=== PATIENT | female | born 1950 | race Caucasian/White ===

== ENCOUNTER → 2024-01-07 11:41 | Outpatient (REF) | payer MEDICARE, OTHER, SELFPAY | LOC: HWWDC 11:41 | PROVIDERS: ATTENDING PHYSICIAN Physician Assistant Medical | DX: Z12.31 Encounter for screening mammogram for malignant neoplasm of breast (principal) | CPT/HCPCS: 77063; 77067 ==

== ENCOUNTER → 2024-04-07 10:19 | Outpatient (REF) | payer MEDICARE, OTHER, SELFPAY | LOC: HWRAD 10:19 | PROVIDERS: ATTENDING PHYSICIAN Internal Medicine Critical Care Medicine; FAMILY PHYSICIAN Physician Assistant Medical | DX: R91.1 Solitary pulmonary nodule (principal) | CPT/HCPCS: 71250 ==

== ENCOUNTER → 2024-04-30 09:09 | Outpatient (REF) | payer MEDICARE, OTHER, SELFPAY | LOC: HWRAD 09:09 | PROVIDERS: ATTENDING PHYSICIAN Physician Assistant Medical | DX: R07.81 Pleurodynia (principal) | CPT/HCPCS: 71101 ==

== ENCOUNTER → 2024-12-15 10:31 | Outpatient (REF) | payer MEDICARE, OTHER, SELFPAY | LOC: PAVMRI 10:31 | PROVIDERS: ATTENDING PHYSICIAN Orthopaedic Surgery; FAMILY PHYSICIAN Physician Assistant Medical | DX: M54.50 Low back pain, unspecified (principal) | CPT/HCPCS: 72148 ==

== ENCOUNTER → 2025-01-22 08:14 | Outpatient (REF) | payer MEDICARE, OTHER, SELFPAY | LOC: HWWDC 08:14 | PROVIDERS: ATTENDING PHYSICIAN Physician Assistant Medical | DX: M85.80 Other specified disorders of bone density and structure, unspecified site (principal); Z12.31 Encounter for screening mammogram for malignant neoplasm of breast; M85.89 Other specified disorders of bone density and structure, multiple sites | CPT/HCPCS: 77063; 77067; 77080 ==

== ENCOUNTER 2025-04-21 12:01 | Inpatient (IN) | payer MEDICARE, OTHER, SELFPAY ==
[2025-04-21] VITALS (8 sets, daily range): BP systolic 112–163; BP diastolic 70–92; PULSE 92–114; BMI 38.8; BMI 37.3
--- NOTE | 2025-04-21 07:33 | ED.GENMED ---
History of Present Illness
General
Chief Complaint: Rectal Bleeding
Source: patient
Exam Limitations: none
Time Seen by Provider: 04/21/25 07:21
History of Present Illness
History of Present Illness:
75-year-old female complaining of multiple episodes of bright red rectal bleeding this morning. Some vague lower abdominal cramps and discomfort. No nausea or vomiting no fever. Similar episode in 2021. Diagnosed with colitis at that time
Past History
Past History
ED Past Medical History: HTN and Hypercholesterolemia
ED Past Surgical History: Tonsilectomy
Social History
Tobacco: Non-smoker
Alcohol: Daily
Drug: None
Personal:
Living: alone
Review of Systems
Review of Systems
All Other Systems: Not applicable
Constitutional: Denies fever
Respiratory: Reports no symptoms
Cardiac: Reports no symptoms
Phy Exam
Physical Exam
Physical Exam:
GENERAL: Alert and oriented in no apparent distress
EYE: Orbits normal.
NECK: Supple, no significant adenopathy.
ENT: Pharynx without erythema
CARDIAC: Regular rate and rhythm without any obvious murmurs.
LUNGS: Clear breath sounds,normal
ABDOMEN: Soft, mild nonlocalizing lower abdominal tenderness. No rebound or guarding no mass or hernia. Rectal exam with no stool in the rectal vault. Very small amount of bright red blood on the fingertip. Test positive
NEUROLOGICAL: Alert and oriented , grossly non-focal
SKIN: Warm and dry, no rash or lesion, no discoloration, skin intact.
MUSCULOSKELETAL: No edema,no deformity.Good color
PSYCH: Normal and appropriate interaction.
Course
Orders/Labs/Results
Orders:
Orders
04/21/25 07:22
IV Insert/Care/Rem.- Treatment PRN
04/21/25 07:25
Type+Screen Urgent
Complete Blood Count/With Diff Urgent
Comprehensive Metabolic Panel Urgent
Lipase Urgent
Comment: ADD ON
04/21/25 07:33
CT Abd/Pel (IV only)-DH only Urgent
Comment:
Reason For Exam: Lower abdominal pain/rectal bleeding
0.9% Sodium Chloride 500 ml [Nss] 500 ml IV BOLUS
04/21/25 09:19
Stool Culture Urgent
ALCON Source: Feces/Stool
Specimen Description:
Date Specimen was Collected: 04/21/25
Time Specimen was Collected: 09:14
04/21/25 11:23
Add On- LAB Urgent
Tests Added?: Lipase
04/21/25 11:24
Admit/Transfer Patient As Directed
Co-Sign Provider:
Level of Care: Inpatient admission
Assign to:: Telemetry
Physician / Group: Hospitalist
Diagnosis: colitis
Reason for Telemetry: Other
Other Reason for Telemetry: GI bleed
Date to Stop Telemetry: 04/23/25
Time to Stop Telemetry: 11:00
Reason for Hospitalization: Colitis
Expected length of stay greater than two midnights?: Yes
ELOS- Estimated Length of Stay in days: 2
I certify the patient meets the requirements for IP care: Yes
PRN Pain Medication Management As Directed
May give lesser potent ordered pain med per pt: Yes
preference::
Protocol:: Medication orders for pain may be administered in a
manner that supports deferring to patient preference
when the pt is:
- Requesting an ordered lesser potent pain medication.
Least to most potent pain medications are defined
as: acetaminophen < NSAID < tramadol < opioids
(morphine, oxycodone, hydromorphone).
- Requesting a lesser dose of the same medication IF
ORDERED.
- Requesting a less intrusive route of administration
if both routes are prescribed by the provider (PO <
IV).
04/21/25 11:30
Code Status As Directed
Resuscitation Status: Full Code
04/23/25 11:00
DC Protocol for Telemetry ONCE
Abnormal Lab Results
04/21/25
07:25
MCHC 31.5 L g/dL
(33.0-37.0)
Abs Immat Gran (auto) 0.1 H 10^3/uL
(0-0.05)
Absolute Neuts (auto) 7.0 H 10^3/uL
(1.4-6.5)
Absolute Monos (auto) 0.9 H 10^3/uL
(0.1-0.6)
Glucose 160 H mg/dl
(70-99)
AST 42 H U/L
(14-36)
ALT 43 H U/L
(0-35)
04/21/25 07:25
04/21/25 07:25
Vital Signs
Initial and Last Documented VS:
Initial Vital Signs
Pulse Ox
98
04/21/25 06:54
Last Documented Vital Signs
Temp Pulse Resp BP Pulse Ox
98.1 F 86 18 148/70 97
04/21/25 06:59 04/21/25 06:59 04/21/25 06:59 04/21/25 11:12 04/21/25 11:45
MDM/Problems Addressed
Differential Diagnosis Includes:
Patient describing multiple episodes of bright red rectal bleeding. Stable. Differential colitis although not describing diarrhea, diverticulitis, internal hemorrhoidal bleeding, polyp or tumor bleeding. Workup in progress.
*Radiology
Radiology exam reviewed: radiology read reviewed (Colitis)
*Pulse Oximetry
SaO2: 96
Oxygen Mode of Delivery: Room air
Patient hypoxic: no (98)
*Critical Care Note
Total Time (30-74mins, 75-104mins- exclusive of procedures): Not Applicable
Data Reviewed
Review of Other/Old Records Reveals: Labs, Records, Radiology Studies and Other (Emergency department visit)
Update Note
Update Note:
Patient with a second episode of rectal bleeding. She has colitis by CT. I am not convinced this is an infectious colitis. Unusual to have a similar episode exactly the same as 3 years ago. No history of autoimmune colitis. She has had a
colonoscopy since that previous episode was negative. Would have to consider ischemic colitis although very nontoxic in appearance and has no significant pain. Will admit for further care
ED Attending Note
-
Portions of this chart may have been created with voice recognition software.� Occasional wrong word or��sound alike� substitutions may have occurred due to the inherent limitations of voice recognition software.
Discharge Plan
Departure
Patient Disposition: Admit
Date of Disposition: 04/21/25
Time of Disposition: 10:52
Presentation/result/management discussed w/ accepting MD/DO: Hospitalist
Discharge Problem:
Rectal bleeding/colitis
Interventions
Interventions:
*Risk Screen - Suicide Last Done: 04/21/25 06:59
*General Assessment Last Done: 04/21/25 06:59
*Neglect/Abuse Screening Last Done: 04/21/25 06:54
*ED- Fall Risk Assessment Last Done: 04/21/25 06:54
YZ-Jdrmli-Lxbssgjywy Assessment Last Done: 04/21/25 06:54
ED- Cardiac Assessment Last Done: 04/21/25 06:54
ED- Pulmonary Assessment Last Done: 04/21/25 06:54
[2025-04-21 07:47] LABS: Hematocrit 42.8 % (37.0-47.0); Hemoglobin 13.5 g/dL (12.0-16.0); Mean Corp Hgb Conc. 31.5 g/dL (33.0-37.0); Mean Corpuscular Volume 93.4 fL (81.0-99.0); Nucleated Red Blood Cells % 0 %; Platelet Count 260 10^3/uL (130-400); Red Cell Dist. Width 13.4 % (11.5-14.5)
[2025-04-21] MEDS: NSS 500 IV (07:50)
[2025-04-21 08:21] LABS: ALT (SGPT) 43 U/L (0-35); AST (SGOT) 42 U/L (14-36); Albumin 4.4 g/dl (3.5-5.0); Alkaline Phosphatase 84 U/L (38-126); Blood Urea Nitrogen 15 mg/dl (7-17); Calcium 8.9 mg/dl (8.4-10.2); Carbon Dioxide 25 mmol/L (22-30); Chloride 105 mmol/L (98-107); Estimated Creatinine Clearance 64 ml/min; Glucose 160 mg/dl (70-99); Potassium 4.0 mmol/L (3.5-5.1); Sodium 140 mmol/L (135-145); Total Protein 7.2 g/dl (6.3-8.2); eGFR > 60.00
--- NOTE | 2025-04-21 11:22 | HPS.HSE ---
Addendum entered and electronically signed by Guille Jasso MD 04/21/25 15:08:
I saw and evaluated the patient. I reviewed the resident�s note and agree with findings and plan as documented in the resident�s note. See changes in my documentation
75-year-old female rectal bleeding since 3 am. She also had some abdominal cramps after that. No dizziness no pain preceding this. No sick contacts or any restaurant meals.
On examination patient awake alert oriented
CVS: S1-S2 normal
Chest: CTA B/L
Abdomen: Soft, NT / Bowel sounds present
Extremities: No edema
# Rectal bleeding
Colitis on CT-likely ischemic colitis versus infectious
Supportive treatment. Hold off on antibiotics
Stool studies if able-patient reports no diarrhea bowel
GI evaluation noted. They are planning for inpatient colonoscopy
Patient had a colonoscopy in June 2022 with polyps and hemorrhoids
IV fluids, sips of clears
# Hypertension-continue amlodipine
# Hyperlipidemia-continue statin
# Hypothyroidism-continue levothyroxine
# Insomnia-on Remeron
# Obesity per BMI criteria
# DVT prophylaxis-SCDs
# Full code
Part of this note was created using voice recognition system. Occasional wrong word or��sound alike� substitutions may have inadvertently occurred due to the inherent limitations of voice recognition software. If noted kindly bring it to my
attention for correction.
Original Note:
Family Physician
-
Family Physician: Laury Csear
Chief Complaint
-
Rectal bleed
History of Present Illness
This is a 75-year-old female with known history of hypertension, hypothyroidism, hypercholesteremia, history of colitis in 2021. Presented with complaints of rectal bleeding that started around 3 in the morning. She also experienced intermittent
lower abdominal cramps. Denies any nausea or vomiting. Denies any fevers or chills. Denies any recent sick contacts, recent travel any changes in the medications. Denies any recent changes in the diet.
In the emergency department patient had 2 additional episodes of bright red blood per rectum.
ED course:
CBC with hemoglobin of 13.5, CMP unremarkable
CT abdomen pelvis with findings of colitis involving the descending and sigmoid colon. Hepatomegaly with hepatic steatosis.
She received 1 bag of 500 mL normal saline.
Medical History
Past Medical History
Past Medical History: Reports HTN, Hypercholesterolemia and Hypothyroidism
Past Surgical History: Reports Tonsilectomy
Social History
Tobacco: Non-smoker
Alcohol: Occasional
Drug: None
Personal: Single
Living: Alone
Family History
Family History: Not pertinent
Allergies / Home Medications
Allergies reflects when Allergies were last updated in [employer].
Home Medications with original date entered in [employer]
Allergy/Medication List:
Allergies
Allergy/AdvReac Type Severity Reaction Status Date / Time
morphine Allergy Vomiting Verified 04/21/25 06:59
Home Medications
amlodipine 5 mg tablet (Norvasc) 5 mg PO DAILY Blood Pressure 02/05/22
acetaminophen 325 mg tablet (Tylenol) 650 mg PO Q6HPRN PRN mild pain 04/21/25
cholecalciferol (vitamin D3) 25 mcg (1,000 unit) tablet (Vitamin D3) 25 mcg PO DAILY Supplement 04/21/25
levothyroxine 125 mcg tablet (Synthroid) 125 mcg PO DAILY Thyroid 04/21/25
mirtazapine 15 mg tablet 15 mg PO HS Sleep 04/21/25
rosuvastatin 20 mg tablet (Crestor) 20 mg PO DAILY High Cholesterol 04/21/25
therapeutic multivitamin 1 tab PO DAILY Supplement 04/21/25
Review of Systems
-
History Source: Patient
Constitutional: Reports No Symptoms
Respiratory: Reports No Symptoms
Cardiac: Reports No Symptoms
Abdomen/GI: Reports Abdominal Pain and Bloody Stools
Neurological: Reports No Symptoms
Physical Exam
Vital Signs
Vital Signs
Temp Pulse Resp BP Pulse Ox
98.1 F 86 18 136/76 96
04/21/25 06:59 04/21/25 06:59 04/21/25 06:59 04/21/25 06:59 04/21/25 07:36
Physical Exam
General: Well Developed, Well Nourished and No Apparent Distress
Respiratory: Clear and Non Labored Respirations
Cardiac: S1/S2 and Regular Rhythm
GI: Soft, Non Distended and Other (Mild tenderness in the lower abdominal area)
Rectal: Other (Patient refused. ER exam showed heme positive with small amount of bright red blood on the fingertip)
Skin: Warm
Neuro: Awake, Alert and Oriented
Psych: Calm
Laboratory Results
-
04/21/25 07:25
04/21/25 07:25
Laboratory Results
Total Bilirubin 0.4 mg/dl (0.2-1.3) 04/21/25 07:25
AST 42 U/L (14-36) H 04/21/25 07:25
ALT 43 U/L (0-35) H 04/21/25 07:25
Alkaline Phosphatase 84 U/L (38-126) 04/21/25 07:25
Data Reviewed
-
CT Scan: Report Reviewed by me, Discussed with Physician and Discussed with Patient
Lab Data: Labs Reviewed by me, Discussed with Physician and Discussed with Patient
Impression/Plan
-
IMPRESSION: 75-year-old female presented with bright red rectal bleeding
CTabd/pel with IV 04/21/2025: Findings of colitis involving the descending and sigmoid colon.
Hepatomegaly with hepatic steatosis.
# Colitis
# Rectal bleeding
- admit to tele
- H&H every 6 hours
- Unlikely infectious; will hold off on antibiotics
- npo with sips of clear; if H&H stays stable can advance to clears later today
- IV PPI
- IVF
- Check C. difficile, stool studies
- GI consult
- Colonoscopy from June 2022 reviewed
#Hypertension
- Continue on home amlodipine 5 mg daily
#Hyperlipidemia
Continue on home rosuvastatin 20 mg daily
#Hypothyroidism
- Continue on home Synthroid 125 mcg
CODE STATUS: Full code
DVT prophylaxis: SCDs
[2025-04-21 12:25] LABS: Lipase 235 U/L (23-300)
--- NOTE | 2025-04-21 14:18 | CON.GI ---
Medical History
Chief Complaint / HPI
Chief Complaint: BRBPR
History of Present Illness:
75yoF PMH HTN, hypothyroid, HLD, colitis 2021 presenting with abdominal cramping and bright red blood per rectum.
Pt reports waking up at around 3am from severe abdominal cramps with significant amount of blood per rectum following. She reports continued rectal blood prompting her presentation to the ED. Denies fever, chills, lightheadedness, nausea, vomiting.
She described similar episode in 2021 when she was diagnosed with colitis. Pt describes intermittent cramps that are present at baseline but are worse with flares when she has bouts of blood. She reports reduced outpt since being in hospital. Denies
eating food out of the ordinary, no recent raw fish or raw food. No recent travel.
She is aware of hx of hemorrhoids that she reports do not bleed as long as she is not constipated. Denies recent constipation. Last BM yesterday.
Pt has hx of bleeding duodenal and gastric ulcers ever since childhood. She reports controlling symptoms well with diet. Her usual symptoms with ulcers is epigastric/sternal pain accompanied by hematemesis in which she denies this episode. Last time
she had ulcers, she had such severe chest pain, they took her to the cardiac [facility]. The endoscopy then revealed 5 bleeding ulcers. She then had a blood clot in her arm. Not on any blood thinners currently.
No FH of colitis.
Past Medical History
Past Medical History: GERD, HTN, Hypercholesterolemia and Hypothyroidism
Social History
Tobacco: Former Smoker (quit 20 years ago)
Alcohol: Daily (1 drink per day)
Drug: None
Allergies / Home Medications
Allergy/AdvReac Type Severity Reaction Status Date / Time
morphine Allergy Vomiting Verified 04/21/25 06:59
�Medication �Instructions �Recorded
amlodipine 5 mg tablet (Norvasc) 5 mg PO DAILY Blood Pressure 02/05/22
acetaminophen 325 mg tablet 650 mg PO Q6HPRN PRN mild pain 04/21/25
(Tylenol)
cholecalciferol (vitamin D3) 25 25 mcg PO DAILY Supplement 04/21/25
mcg (1,000 unit) tablet (Vitamin
D3)
levothyroxine 125 mcg tablet 125 mcg PO DAILY Thyroid 04/21/25
(Synthroid)
mirtazapine 15 mg tablet 15 mg PO HS Sleep 04/21/25
rosuvastatin 20 mg tablet (Crestor) 20 mg PO DAILY High Cholesterol 04/21/25
therapeutic multivitamin 1 tab PO DAILY Supplement 04/21/25
Review of Systems
Vital Signs
Temp Pulse Resp BP Pulse Ox
98.1 F 86 18 155/76 96
04/21/25 06:59 04/21/25 06:59 04/21/25 06:59 04/21/25 13:08 04/21/25 14:00
Physical Exam
Exam
General: Well Developed, Well Nourished and No Apparent Distress
HEENT: Normocephalic, Anicteric and Moist Mucous Membranes
Respiratory: Clear and Non Labored Respirations
Cardiac: S1/S2 and Regular Rhythm
GI: Soft, Non Tender and Non Distended
Skin: Warm and Dry
Neuro: AO x 3 and Nonfocal/Grossly Intact
Results
WBC 10.2 10^3/uL (4.8-10.8) 04/21/25 07:25
Hgb 13.5 g/dL (12.0-16.0) 04/21/25 07:25
Hct 42.8 % (37.0-47.0) 04/21/25 07:25
MCV 93.4 fL (81.0-99.0) 04/21/25 07:25
Plt Count 260 10^3/uL (130-400) 04/21/25 07:25
Absolute Neuts (auto) 7.0 10^3/uL (1.4-6.5) H 04/21/25 07:25
Sodium 140 mmol/L (135-145) 04/21/25 07:25
Potassium 4.0 mmol/L (3.5-5.1) 04/21/25 07:25
Chloride 105 mmol/L (98-107) 04/21/25 07:25
Carbon Dioxide 25 mmol/L (22-30) 04/21/25 07:25
BUN 15 mg/dl (7-17) 04/21/25 07:25
Creatinine 0.9 mg/dL (0.6-1.0) 04/21/25:25
Calcium 8.9 mg/dl (8.4-10.2) 04/21/25 07:
Total Bilirubin 0.4 mg/dl (0.2-1.3) 04/21/25:
AST 42 U/L (14-36) H 04/21/25:25
ALT 43 U/L (0-35) H 04/21/25:25
Alkaline Phosphatase 84 U/L (38-126) 04/21/25:25
Lipase 235 U/L (23-300) 04/21/25 07:25
Diagnostic Image Results:
IMPRESSION:
Findings of colitis involving the descending and sigmoid colon.
Hepatomegaly with hepatic steatosis.
Prior GI Procedures:
EGD:
Colonoscopy: 2022
Impression: - Two 4 to 8 mm polyps in the proximal ascending
colon, removed with a cold snare. Resected and
retrieved.
- One 4 mm polyp in the rectum, removed with a cold
snare. Resected and retrieved.
- Internal hemorrhoids.
- A tattoo was seen in the descending colon. The
tattoo site appeared normal.
- The examined portion of the ileum was normal.
Assessment / Plan
-
75yoF PMH HTN, hypothyroidism, HLD, colitis 2021 presenting with abdominal cramping and BRBPR.
AFVSS. Hgb stable. Hemodynamically stable. Denies viral prodrome, recent travel, abnormal diet. Lipase 235 WNL. Infectious panel pending. Pt experienced similar episode in 2021. No nausea, vomiting, diarrhea, hematemesis.
Unlikely brisk upper GI bleed despite hx of ulcers since she is hemodynamically stable. Likely lower GI bleed. Not on blood thinners. Hx hemorrhoids with pt reporting no recent flares. After discussion with pt, she prefers colonoscopy inpatient
since she continues to experience bleeding despite it being reduced since admission.
#BRBPR
- Plan for colonoscopy tomorrow
- Continue supportive measures
- Follow Hgb. Currently stable
-
-
Thank you for consultation and allowing me to participate in the patient's care. Please call the gas station operator GI physician during the after hours with any questions or concerns.
[2025-04-21] MEDS: GAVILAX 238 GM PO (17:01)
[2025-04-21] MEDS: DULCOLAX 5 MG PO (17:01)
[2025-04-21 20:29] LABS: Hematocrit 40.9 % (37.0-47.0); Hemoglobin 13.4 g/dL (12.0-16.0)
[2025-04-21] MEDS: REMERON 15 MG PO (20:49)
[2025-04-21] MEDS: NSS 1000 IV (20:49)
--- NOTE | 2025-04-21 22:32 | TRANSFER ---
patient arrived to unit via stretcher from ED at 1935 dx of colitis. patient was able to walk into room independently. Patient stated she started bowel prep for colonoscopy in the ED and is finishing her last bottle at time of arrival. Patient is
able to make all needs known. VS WNL. Call cruz within reach. Safety maintained.
[2025-04-22] VITALS (11 sets, daily range): BP systolic 116–162; BP diastolic 63–83; PULSE 78–98
[2025-04-22 04:03] LABS: Hematocrit 38.2 % (37.0-47.0); Hemoglobin 12.5 g/dL (12.0-16.0)
[2025-04-22] MEDS: SYNTHROID 125 MCG PO (05:41)
--- NOTE | 2025-04-22 07:14 | W.PN.HOSP.TC ---
Addendum entered and electronically signed by Guille Jasso MD 04/22/25 11:18:
I saw and evaluated the patient. I reviewed the resident�s note and agree with findings and plan as documented in the resident�s note. See changes in my documentation
75-year-old female rectal bleeding since 3 am. She also had some abdominal cramps after that. No dizziness no pain preceding this. No sick contacts or any restaurant meals.
Has mild cramps
On examination patient awake alert oriented
CVS: S1-S2 normal
Chest: CTA B/L
Abdomen: Soft, NT / Bowel sounds present
Extremities: No edema
# Rectal bleeding
Colitis on CT-likely ischemic colitis versus infectious
Supportive treatment. Hold off on antibiotics
GI evaluation noted. They are planning for inpatient colonoscopy
Patient had a colonoscopy in June 2022 with polyps and hemorrhoids
IV fluids
# Hypertension-continue amlodipine
# Hyperlipidemia-continue statin
# Hypothyroidism-continue levothyroxine
# Insomnia-on Remeron
# Obesity per BMI criteria
# DVT prophylaxis-SCDs
# Full code
Part of this note was created using voice recognition system. Occasional wrong word or��sound alike� substitutions may have inadvertently occurred due to the inherent limitations of voice recognition software. If noted kindly bring it to my
attention for correction.
Original Note:
Today's Communication/Plan
-
ivf
iv ppi
inpatient colono today with GI
Assessment / Plan
Assessment / Plan
75-year-old female presented with bright red rectal bleeding
CTabd/pel with IV 04/21/2025: Findings of colitis involving the descending and sigmoid colon.
Hepatomegaly with hepatic steatosis.
# Colitis
# Rectal bleeding
- monitor Hb; stable
- Unlikely infectious; will hold off on antibiotics
- IV PPI
- IVF
- neg C. difficile, pending stool studies
- GI following; inpatient colono today
- Colonoscopy from June 2022 reviewed
#Hypertension
- Continue on home amlodipine 5 mg daily
#Hyperlipidemia
Continue on home rosuvastatin 20 mg daily
#Hypothyroidism
- Continue on home Synthroid 125 mcg
# Insomnia-on Remeron
# Obesity per BMI criteria
CODE STATUS: Full code
DVT prophylaxis: SCD
Anticipated Discharge: Within 24 hours
Subjective/Interval History
-
Date of Service: April 22, 2025
AFVSS. 2 BRBPR episode last night. intermittent abd cramp.
Objective Data
-
Labs:
Laboratory Results
04/21/25 04/22/25 04/22/25
20:13 03:50 06:00
Hgb 13.4 12.5
Hct 40.9 38.2
Sodium Pending
Potassium Pending
Chloride Pending
Carbon Dioxide Pending
BUN Pending
Creatinine Pending
Glucose Pending
Calcium Pending
Total Bilirubin Pending
AST Pending
ALT Pending
Alkaline Phosphatase Pending
04/22/25
07:42
Hgb Pending
Hct Pending
Sodium
Potassium
Chloride
Carbon Dioxide
BUN
Creatinine
Glucose
Calcium
Total Bilirubin
AST
ALT
Alkaline Phosphatase
Vital Signs:
Vital Signs
Temp Pulse Resp BP Pulse Ox
98.8 F 89 18 130/63 97
04/22/25 03:00 04/22/25 03:00 04/22/25 03:00 04/22/25 03:00 04/22/25 03:00
Review of Systems
-
History Source: Patient
Abdomen/GI: Reports Abdominal Pain and Bloody Stools
Physical Exam
-
General: Well Nourished and No Apparent Distress
Respiratory: Clear to Auscultation and Non Labored Respirations
GI: Soft, Nondistended, Normal Bowel Sounds and Tender (lower)
Skin: Warm
Neuro: Awake, Alert and Oriented
Psych: Calm
Data Reviewed
-
Labs: Labs Reviewed by me, Discussed with Physician and Discussed with Patient
[2025-04-22] MEDS: THERAGRAN 1 TABLET PO (08:16)
[2025-04-22] MEDS: CRESTOR 20 MG PO (08:16)
[2025-04-22] MEDS: PROTONIX IV 40 MG IV (08:16)
[2025-04-22] MEDS: NORVASC 5 MG PO (08:16)
[2025-04-22] MEDS: VITAMIN D3 (cholecalciferol) 25 MCG PO (08:16)
[2025-04-22] MEDS: NSS (PRESERVATIVE FREE) 10 ML IV (08:17)
[2025-04-22 08:38] LABS: Hematocrit 38.5 % (37.0-47.0); Hemoglobin 12.5 g/dL (12.0-16.0)
[2025-04-22 09:48] LABS: ALT (SGPT) 30 U/L (0-35); AST (SGOT) 27 U/L (14-36); Albumin 3.8 g/dl (3.5-5.0); Alkaline Phosphatase 62 U/L (38-126); Blood Urea Nitrogen 7 mg/dl (7-17); Calcium 8.7 mg/dl (8.4-10.2); Carbon Dioxide 23 mmol/L (22-30); Chloride 107 mmol/L (98-107); Estimated Creatinine Clearance 73 ml/min; Glucose 107 mg/dl (70-99); Potassium 3.6 mmol/L (3.5-5.1); Sodium 136 mmol/L (135-145); Total Protein 6.6 g/dl (6.3-8.2); eGFR > 60.00
[2025-04-22] MEDS: NSS 1000 IV (11:03)
--- NOTE | 2025-04-22 13:04 | W.PN.UPDATE ---
Update Note
Progress Note Update
colonoscopy to the splenic flexure:
likely ischemic colitis of descending, sigmoid colon, biopsied
plan:
avoid nsaids
monitor hemodynamics
clears
--- NOTE | 2025-04-22 14:07 | PTCARENOTE ---
Pt returned from PACU via stretcher. Ambulated to bed, gait steady. IVF infusing per order. Pt educated on CLD and that diet will be advanced as tolerated. Bed locked and in the lowest position, safety maintained.
--- NOTE | 2025-04-22 14:52 | CM ---
CM following re: discharge planning.
Reviewed pt's chart, met with pt.
Pt is a 75 year old female, admitted with primary dx of Colitis. Colonoscopy today.
Pt reports she lives alone in a 2SH, 1 step to enter, has 2 supportive daughter: one lives nearby and helps as needed, another lives in [place].
Pt described herself as independent in all areas [employer]IC[employer]. No DME, VN or SNF history.
PCP: Laury Cesar
Pharmacy: [facility]
D/C plan: home no needs. Daughter to transport at discharge.
[2025-04-22 14:59] LABS: Hepatitis C Antibody Negative (Negative)
[2025-04-22] MEDS: NSS IV (19:15)
[2025-04-22] MEDS: REMERON 15 MG PO (21:35)
[2025-04-23 03:13] VITALS: BP 125/60
[2025-04-23] MEDS: SYNTHROID 125 MCG PO (06:27)
[2025-04-23 07:06] VITALS: BP 155/74
[2025-04-23 08:32] LABS: Hematocrit 37.3 % (37.0-47.0); Hemoglobin 12.1 g/dL (12.0-16.0); Mean Corp Hgb Conc. 32.4 g/dL (33.0-37.0); Mean Corpuscular Volume 94.4 fL (81.0-99.0); Platelet Count 207 10^3/uL (130-400); Red Cell Dist. Width 13.3 % (11.5-14.5)
[2025-04-23] MEDS: CRESTOR 20 MG PO (08:36)
[2025-04-23] MEDS: NSS (PRESERVATIVE FREE) IV ×2 (08:36→08:55)
[2025-04-23] MEDS: VITAMIN D3 (cholecalciferol) 25 MCG PO (08:36)
[2025-04-23] MEDS: PROTONIX IV IV ×2 (08:36→08:54)
[2025-04-23] MEDS: NORVASC 5 MG PO (08:36)
[2025-04-23] MEDS: FLUSH (NSS) 2 FLUSH IV (08:36)
[2025-04-23 08:39] LABS: Blood Urea Nitrogen 8 mg/dl (7-17); Calcium 8.8 mg/dl (8.4-10.2); Carbon Dioxide 25 mmol/L (22-30); Chloride 107 mmol/L (98-107); Estimated Creatinine Clearance 73 ml/min; Glucose 99 mg/dl (70-99); Potassium 3.8 mmol/L (3.5-5.1); Sodium 136 mmol/L (135-145); eGFR > 60.00
[2025-04-23] MEDS: THERAGRAN 1 TABLET PO (08:40)
--- NOTE | 2025-04-23 10:20 | W.PN.GI.CBS2 ---
Addendum entered and electronically signed by Ismael Mendoza MD 04/23/25 12:24:
I saw and examined the patient.
The PA's note was reviewed and I agree with the note.
Comment:
Ischemic colitis, now tolerating diet, pain feels better. Continue supportive management, she is improving clinically. GI will s/o, call with questions.
Original Note:
Today's Communication / Plan
-
Pending attending recommendations
Ischemic colitis
Assessment / Plan
-
75yoF PMH HTN, hypothyroidism, HLD, colitis 2021 presenting with abdominal cramping and BRBPR.
AFVSS. Hgb stable. Hemodynamically stable. Denies viral prodrome, recent travel, abnormal diet. Lipase 235 WNL. Infectious panel pending. Pt experienced similar episode in 2021. No nausea, vomiting, diarrhea, hematemesis.
Likely lower GI bleed. Not on blood thinners.
AFVSS. Hgb 12.1.
Colonoscopy yesterday demonstrated ischemic colitis of descending, sigmoid colon. Pt demonstrated understanding of condition and management with plans to hydrate well and minimize NSAID use.
#ischemic colitis
- Manage supportively
Subjective
Subjective
Date of Service: April 23, 2025
Pt reports feeling better today. She describes minimal cramping and significantly reduced blood in her stool. She reports having flatulence since her scope, otherwise improved symptoms.
Objective
Data Reviewed
Laboratory Data:
Laboratory Results
04/23/25 07:34
04/23/25 07:34
Laboratory Results
Total Bilirubin 0.9 mg/dl (0.2-1.3) 04/22/25 07:47
AST 27 U/L (14-36) 04/22/25 07:47
ALT 30 U/L (0-35) 04/22/25 07:47
Alkaline Phosphatase 62 U/L (38-126) 04/22/25 07:47
Lipase 235 U/L (23-300) 04/21/25 07:25
Vital Signs and I&O:
Vital Signs
Temp Pulse Resp BP Pulse Ox
98.5 F 72 16 155/74 95
04/23/25 07:06 04/23/25 07:06 04/23/25 07:06 04/23/25 07:06 04/23/25 07:06
I&O
04/22/25 04/23/25 04/24/25
06:59 06:59 06:59
Intake Total 3200 / 3200 480 / 480
Balance 3200 / 3200 480 / 480
Physical Exam
Physical Exam
HEENT: Anicteric and Moist mucous membranes
Cardiology: Normal Sinus Rhythm
Pulmonary: Clear
GI: Soft, Non Distended and Tender (mildly to deep palpation)
Extremities: No Edema
Neuro: Non Focal
[2025-04-23 11:00] VITALS: BP 112/61
--- NOTE | 2025-04-23 13:57 | W.PN.HOSP.TC ---
Today's Communication/Plan
-
Okay for discharge per discussion with GI
Discharge
Assessment / Plan
Assessment / Plan
75-year-old female rectal bleeding since 3 am. She also had some abdominal cramps after that. No dizziness no pain preceding this. No sick contacts or any restaurant meals.
Tolerating diet
On examination patient awake alert oriented
CVS: S1-S2 normal
Chest: CTA B/L
Abdomen: Soft, NT / Bowel sounds present
Extremities: No edema
# Rectal bleeding
Colitis on CT-likely ischemic colitis
Supportive treatment. Hold off on antibiotics
GI evaluation noted. Colonoscopy -confirmed ischemic colitis
Patient had a colonoscopy in June 2022 with polyps and hemorrhoids
# Hypertension-continue amlodipine
# Hyperlipidemia-continue statin
# Hypothyroidism-continue levothyroxine
# Insomnia-on Remeron
# Obesity per BMI criteria
# DVT prophylaxis-SCDs
# Full code
D/W GI-okay for discharge
D/W RN
Anticipated Discharge: Today
Subjective/Interval History
-
Date of Service: April 23, 2025
Objective Data
-
Labs:
Laboratory Results
04/23/25
07:34
WBC 9.2
Hgb 12.1
Hct 37.3
Plt Count 207 D
Sodium 136
Potassium 3.8
Chloride 107
Carbon Dioxide 25
BUN 8
Creatinine 0.8
Glucose 99
Calcium 8.8
Vital Signs:
Vital Signs
Temp Pulse Resp BP Pulse Ox
98.6 F 72 18 112/61 95
04/23/25 11:00 04/23/25 11:00 04/23/25 11:00 04/23/25 11:00 04/23/25 11:00
I&O
04/22/25 04/23/25 04/24/25
06:59 06:59 06:59
Intake Total 3200 / 3200 480 / 480
Balance 3200 / 3200 480 / 480
--- NOTE | 2025-04-23 14:07 | W.DS.TRANS ---
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
-
Discharge Instructions:
Discharge Diagnosis/Procedures Rectal bleeding-ischemic colitis
Hypertension
Hyperlipidemia
Hypothyroidism
Insomnia
Diet Low Residue
Activity As tolerated
Driving Restrictions As prior to admission
Instructions:
Stand-Alone Forms:
Changes to Home Medications: No
Discharge Medications:
DC Medications w/original date entered in [employer]
amlodipine 5 mg tablet (Norvasc) 5 mg PO DAILY Blood Pressure 02/05/22
acetaminophen 325 mg tablet (Tylenol) 650 mg PO Q6HPRN PRN mild pain 04/21/25
cholecalciferol (vitamin D3) 25 mcg (1,000 unit) tablet (Vitamin D3) 25 mcg PO DAILY Supplement 04/21/25
levothyroxine 125 mcg tablet (Synthroid) 125 mcg PO DAILY Thyroid 04/21/25
mirtazapine 15 mg tablet 15 mg PO HS Sleep 04/21/25
rosuvastatin 20 mg tablet (Crestor) 20 mg PO DAILY High Cholesterol 04/21/25
therapeutic multivitamin 1 tab PO DAILY Supplement 04/21/25
Home Medication Changes
Pending Results: Yes
Additional Pending Results:
pathology
--- NOTE | 2025-04-23 14:09 | CM ---
CM following re: discharge planning.
Reviewed pt's chart, met with pt.
Pt lives alone in a 2[address], 1 step to enter, has 2 supportive daughter: one lives nearby and helps as needed, another lives in [place].
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 No DME, VN or SNF history.
D/C plan: home no needs. Daughter to transport at discharge.
== END 2025-04-23 14:18 | disposition home or self-care (01) | DRG 394 ==
LOC: 2 SOUTH 12:01
PROVIDERS: Internal Medicine; ADMITTING PHYSICIAN Hospitalist; EMERGENCY PHYSICIAN Emergency Medicine; FAMILY PHYSICIAN Physician Assistant Medical; OTHER PHYSICIAN Internal Medicine
PROC: 0DBM8ZX Excision of Descending Colon, Via Natural or Artificial Opening Endoscopic, Diagnostic (ICD-10-PCS; 2025-04-22)
PROC: 0DBP8ZX Excision of Rectum, Via Natural or Artificial Opening Endoscopic, Diagnostic (ICD-10-PCS; 2025-04-22)
PROC: 0DBN8ZX Excision of Sigmoid Colon, Via Natural or Artificial Opening Endoscopic, Diagnostic (ICD-10-PCS; 2025-04-22)
DX: K55.9 Vascular disorder of intestine, unspecified (principal); K92.0 Hematemesis; K62.1 Rectal polyp; I10 Essential (primary) hypertension; E03.9 Hypothyroidism, unspecified; G47.00 Insomnia, unspecified; E66.9 Obesity, unspecified; K63.89 Other specified diseases of intestine; K64.8 Other hemorrhoids; Z68.37 Body mass index [BMI] 37.0-37.9, adult; Z79.899 Other long term (current) drug therapy; Z87.891 Personal history of nicotine dependence
CPT/HCPCS: 74177; 80048; 80053; 83690; 85014; 85018; 85025; 85027; 86803; 86850; 86900; 86901; 87045; 87046; 87324; 87427; 87449; 88305; 96361; 99285; Q9967